=== PATIENT | male | born 1985 | race Native Hawaiian/Other Pacific Islander ===

== ENCOUNTER 2019-08-05 13:08 | Emergency (ER) | payer OTHER ==
[~2019-08-05] VITALS: Ht 193 cm; Wt 93.4 kg
[2019-08-05 14:08] VITALS: BP 140/94; TEMP 98.5
== END 2019-08-05 14:09 | disposition home or self-care (01) ==
LOC: ED 13:08
DX: B34.9 Viral infection, unspecified (principal)
CPT/HCPCS: 87502; 87651; 99283

== ENCOUNTER 2020-06-19 11:19 | Emergency (ER) | payer OTHER ==
[~2020-06-19] VITALS: Ht 193 cm; Wt 76.8 kg
[2020-06-19 13:30] LABS: PLATELET COUNT 261 K/uL (142-355)
[2020-06-19 13:41] LABS: POTASSIUM 4.1 mmol/L (3.6-5.2)
[2020-06-19 14:30] VITALS: BP 117/83; TEMP 97.5
== END 2020-06-19 14:30 | disposition home or self-care (01) ==
LOC: ED 11:19
PROVIDERS: Family Medicine
DX: A08.39 Other viral enteritis (principal)
CPT/HCPCS: 36415; 80053; 82150; 83690; 85027; 96360; 99284

== ENCOUNTER 2022-08-14 13:20 | Emergency (ER) | payer OTHER ==
[~2022-08-14] VITALS: Ht 193 cm; Wt 72.6 kg
[2022-08-14 13:20] VITALS: TEMP 98.1
[2022-08-14 14:33] LABS: PLATELET COUNT 337 K/uL (142-355)
[2022-08-14 15:22] LABS: POTASSIUM 2.9 mmol/L (3.6-5.2)
[2022-08-14 16:00] VITALS: BP 151/95
== END 2022-08-14 16:22 ==
LOC: ED 13:20
PROVIDERS: Family Medicine
DX: F15.10 Other stimulant abuse, uncomplicated (principal); E87.6 Hypokalemia; S81.832A Puncture wound without foreign body, left lower leg, initial encounter; S21.131A Puncture wound without foreign body of right front wall of thorax without penetration into thoracic cavity, initial encounter; Y35.833A Legal intervention involving a conducted energy device, suspect injured, initial encounter; Y92.512 Supermarket, store or market as the place of occurrence of the external cause
CPT/HCPCS: 80053; 80307; 81002; 85027; 93005; 96360; 99284